=== PATIENT | female | born 1935 | race Caucasian/White ===

== ENCOUNTER 2017-04-08 14:00 | Emergency (ER) | payer MEDICARE, OTHER ==
[2017-04-08 15:49] VITALS: BP 164/84
== END 2017-04-08 15:49 | disposition home or self-care (01) ==
LOC: ED 14:00
DX: S40.012A Contusion of left shoulder, initial encounter (principal); S80.02XA Contusion of left knee, initial encounter; J45.909 Unspecified asthma, uncomplicated; I10 Essential (primary) hypertension; E11.9 Type 2 diabetes mellitus without complications; Z88.0 Allergy status to penicillin; Z88.5 Allergy status to narcotic agent; W19.XXXA Unspecified fall, initial encounter; Y93.89 Activity, other specified; Y99.8 Other external cause status; Y92.89 Other specified places as the place of occurrence of the external cause
CPT/HCPCS: J3010; Q0092; Q0162

== ENCOUNTER 2017-06-29 13:30 | Inpatient (IN) | payer OTHER ==
[~2017-06-29] VITALS: Ht 152.4 cm; Wt 111.2 kg
[2017-06-29 14:29] LABS: BASOPHIL % 0.3 % (0-2); PLATELET COUNT 202 x10^3mcL (130-400)
[2017-06-29 14:34] LABS: RED CELL DISTRIBUTION WIDTH 16.8 % (11.5-14.5)
[2017-06-29 14:43] LABS: CALCIUM 8.7 mg/dL (8.5-10.1); CARBON DIOXIDE 30.9 mmol/L (21-32); CHLORIDE SERUM 104 mmol/L (98-107); GLUCOSE SERUM 86 mg/dL (74-106); POTASSIUM SERUM 4.7 mmol/L (3.5-5.1); SODIUM SERUM 140 mmol/L (136-145)
[2017-06-29 14:47] LABS: ALBUMIN 3.2 g/dL (3.4-5.0); ALKALINE PHOSPHATASE 110 U/L (46-116); ALT/SGPT 23 U/L (14-59); AST/SGOT 22 U/L (15-37); BILIRUBIN TOTAL 0.5 mg/dL (0.20-1.00); TOTAL PROTEIN, SERUM 6.7 g/dL (6.4-8.2)
[2017-06-29] MEDS ORDERED: ASPIR 8181 MG PO (15:51)
[2017-06-29] MEDS ORDERED: CALCIUM (15:51)
[2017-06-29] MEDS ORDERED: PANTOPRAZOLE SO40 M1 PO (15:52)
[2017-06-29] MEDS ORDERED: MONTELUKAST SOD10 M1 PO (15:52)
[2017-06-29] MEDS ORDERED: LOSARTAN POTASS25 M1 PO (15:52)
[2017-06-29] MEDS ORDERED: HUMALOG MIX 75/10 ML (15:53)
[2017-06-29] MEDS ORDERED: SYMBICORT1 AE3 (15:54)
[2017-06-29] MEDS ORDERED: C500500 MG PO (15:54)
[2017-06-29] MEDS ORDERED: ZINC SULFATE220 M2 (15:55)
[2017-06-29] MEDS ORDERED: MULTI-VITAMINS1 TAB PO (15:55)
[2017-06-29] MEDS ORDERED: CYMBALTA60 M1 PO (15:56)
[2017-06-29] MEDS ORDERED: VITAMIN D PO (15:56)
[2017-06-29] MEDS ORDERED: MELOXICAM15 M1 PO (15:57)
[2017-06-29] MEDS ORDERED: ALLOPURINOL100 MG PO (15:57)
[2017-06-29 17:15] VITALS: BP 166/67
[2017-06-29 18:19] LABS: PHOSPHOROUS 3.5 mg/dL (2.5-4.9)
[2017-06-29 18:23] LABS: CHOLESTEROL/HDL RATIO 2.5
[2017-06-29 18:30] LABS: FREE T4 0.9 ng/dL (0.76-1.46); FREE THYROXINE INDEX 2.1 ug/dL (1.4-4.5); T4(THYROXINE) 5.4 ug/dL (4.7-13.3)
[2017-06-29 18:55] LABS: T3 TOTAL 0.79 ng/mL
[2017-06-29 21:29] VITALS: BP 155/56
[2017-06-30 04:53] LABS: microscopic required? YES; urine erythrocyte NEGATIVE (NEGATIVE)
[2017-06-30 05:08] LABS: AMPHETAMINE QUAL UR NONE DETECTED (NEG <=1000)
[2017-06-30 05:49] VITALS: BP 167/76
[2017-06-30 06:15] LABS: BASOPHIL % 0.5 % (0-2); PLATELET COUNT 194 x10^3mcL (130-400)
[2017-06-30 06:21] VITALS: BP 158/60
[2017-06-30 06:27] LABS: CALCIUM 8.4 mg/dL (8.5-10.1); CARBON DIOXIDE 30.7 mmol/L (21-32); CHLORIDE SERUM 108 mmol/L (98-107); CREATININE SERUM 0.9 mg/dL (0.6-1.0); GLUCOSE SERUM 112 mg/dL (74-106); PHOSPHOROUS 3.8 mg/dL (2.5-4.9); POTASSIUM SERUM 4.8 mmol/L (3.5-5.1); SODIUM SERUM 142 mmol/L (136-145)
[2017-06-30 06:30] LABS: RED CELL DISTRIBUTION WIDTH 16.6 % (11.5-14.5)
[2017-06-30 11:10] VITALS: BP 158/65
[2017-06-30 13:15] VITALS: BP 186/69
[2017-06-30] MEDS ORDERED: LASIX40 MG PO ×2 (14:01→14:08)
[2017-06-30 15:44] VITALS: BP 147/67
[2017-06-30] MEDS ORDERED: LAC PO (15:57)
[2017-06-30] MEDS ORDERED: KEFLEX500 M1 PO (15:57)
== END 2017-06-30 16:44 | disposition home health service (06) | DRG 205 ==
LOC: ED 13:30 → DU 15:23
PROVIDERS: ADMIT Family Medicine
DX: M94.0 Chondrocostal junction syndrome [Tietze] (principal); N17.0 Acute kidney failure with tubular necrosis; Z68.42 Body mass index [BMI] 45.0-49.9, adult; N39.0 Urinary tract infection, site not specified; E44.0 Moderate protein-calorie malnutrition; E11.65 Type 2 diabetes mellitus with hyperglycemia; E11.42 Type 2 diabetes mellitus with diabetic polyneuropathy; S30.1XXA Contusion of abdominal wall, initial encounter; I45.10 Unspecified right bundle-branch block; I10 Essential (primary) hypertension; G47.33 Obstructive sleep apnea (adult) (pediatric); M10.9 Gout, unspecified; J44.9 Chronic obstructive pulmonary disease, unspecified; Z79.4 Long term (current) use of insulin; Z99.81 Dependence on supplemental oxygen; Z96.653 Presence of artificial knee joint, bilateral; Z86.73 Personal history of transient ischemic attack (TIA), and cerebral infarction without residual deficits; W18.39XA Other fall on same level, initial encounter; Y92.018 Other place in single-family (private) house as the place of occurrence of the external cause
CPT/HCPCS: 82962; 83880; 84439; J0696; J1815; J1940; J2405; J3490; J7030; J7620; Q0092

== ENCOUNTER 2018-02-28 10:10 | Inpatient (IN) | payer OTHER ==
[~2018-02-28] VITALS: Ht 152.4 cm; Wt 126.1 kg
[~2018-02-28 10:10] MED LIST: ALLOPURINOL100 MG PO; ASPIR 8181 MG PO; C500500 MG PO; CALCIUM; CYMBALTA60 M1 PO; HUMALOG MIX 75/10 ML; KEFLEX500 M1 PO; LAC PO; LASIX40 MG PO; LOSARTAN POTASS25 M1 PO; MELOXICAM15 M1 PO; MONTELUKAST SOD10 M1 PO; MULTI-VITAMINS1 TAB PO; PANTOPRAZOLE SO40 M1 PO; SYMBICORT1 AE3; VITAMIN D PO; ZINC SULFATE220 M2
[2018-02-28 10:13] VITALS: Ht 152.4 cm; Wt 126.1 kg
[2018-02-28 10:47] LABS: BASOPHIL % 0.5 % (0-2); PLATELET COUNT 197 x10^3mcL (130-400)
[2018-02-28 10:48] LABS: RED CELL DISTRIBUTION WIDTH 18.1 % (11.5-14.5)
[2018-02-28 11:06] LABS: CALCIUM 9.4 mg/dL (8.5-10.1); CARBON DIOXIDE 28.6 mmol/L (21-32); CHLORIDE SERUM 106 mmol/L (98-107); CREATININE SERUM 1.1 mg/dL (0.6-1.0); GLUCOSE SERUM 136 mg/dL (74-106); POTASSIUM SERUM 5.5 mmol/L (3.5-5.1); SODIUM SERUM 141 mmol/L (136-145)
[2018-02-28 13:04] VITALS: BP 157/86
[2018-02-28 14:38] VITALS: BP 157/86
[2018-02-28 17:34] VITALS: BP 177/80
[2018-02-28 20:45] VITALS: BP 171/69
[2018-03-01 05:32] VITALS: BP 177/69
[2018-03-01 06:12] LABS: BASOPHIL % 0.7 % (0-2); PLATELET COUNT 178 x10^3mcL (130-400)
[2018-03-01 06:19] LABS: CALCIUM 8.7 mg/dL (8.5-10.1); CARBON DIOXIDE 29.1 mmol/L (21-32); CHLORIDE SERUM 106 mmol/L (98-107); CREATININE SERUM 1.1 mg/dL (0.6-1.0); GLUCOSE SERUM 149 mg/dL (74-106); POTASSIUM SERUM 4.8 mmol/L (3.5-5.1); SODIUM SERUM 141 mmol/L (136-145)
[2018-03-01 07:17] LABS: RED CELL DISTRIBUTION WIDTH 17.6 % (11.5-14.5)
[2018-03-01 09:12] VITALS: BP 141/79
[2018-03-01 12:25] VITALS: BP 158/81
[2018-03-01 16:31] VITALS: BP 165/72
[2018-03-01 18:25] VITALS: BP 156/72
[2018-03-01 21:16] VITALS: BP 160/90
[2018-03-02 05:05] VITALS: BP 115/55
[2018-03-02 05:51] LABS: BASOPHIL % 0.5 % (0-2); PLATELET COUNT 185 x10^3mcL (130-400)
[2018-03-02 05:52] LABS: RED CELL DISTRIBUTION WIDTH 17.8 % (11.5-14.5)
[2018-03-02 06:20] LABS: C REACTIVE PROTEIN 3.1 mg/dL (<=0.9); CALCIUM 8.7 mg/dL (8.5-10.1); CARBON DIOXIDE 31.7 mmol/L (21-32); CHLORIDE SERUM 103 mmol/L (98-107); CREATININE SERUM 1.2 mg/dL (0.6-1.0); GLUCOSE SERUM 157 mg/dL (74-106); MAGNESIUM 1.8 mg/dL (1.8-2.4); PHOSPHOROUS 4.4 mg/dL (2.5-4.9); POTASSIUM SERUM 4.4 mmol/L (3.5-5.1); SODIUM SERUM 141 mmol/L (136-145)
[2018-03-02 07:23] LABS: ERYTHROCYTE SED RATE 23 mm/hr (0-30)
[2018-03-02 08:30] VITALS: BP 175/78
[2018-03-02 13:12] VITALS: BP 165/80
[2018-03-02 17:49] VITALS: BP 151/66
[2018-03-02 21:31] VITALS: BP 144/41
[2018-03-03 05:29] VITALS: BP 147/78
[2018-03-03 05:46] LABS: BASOPHIL % 0.6 % (0-2); PLATELET COUNT 189 x10^3mcL (130-400)
[2018-03-03 06:07] LABS: CALCIUM 8.7 mg/dL (8.5-10.1); CARBON DIOXIDE 32.1 mmol/L (21-32); CHLORIDE SERUM 101 mmol/L (98-107); GLUCOSE SERUM 126 mg/dL (74-106); MAGNESIUM 1.9 mg/dL (1.8-2.4); PHOSPHOROUS 3.9 mg/dL (2.5-4.9); POTASSIUM SERUM 5.1 mmol/L (3.5-5.1); SODIUM SERUM 141 mmol/L (136-145)
[2018-03-03 06:46] LABS: RED CELL DISTRIBUTION WIDTH 18.3 % (11.5-14.5)
[2018-03-03 09:09] VITALS: BP 154/89
[2018-03-03] MEDS ORDERED: ZITHROMAX500 MG PO (12:24)
[2018-03-03] MEDS ORDERED: XARELTO20 M1 PO (12:25)
[2018-03-03] MEDS ORDERED: NOR10 PO (12:26)
[2018-03-03] MEDS ORDERED: HUMULIN R100 U/1 M1 SC (12:26)
[2018-03-03] MEDS ORDERED: LOP50 PO (12:26)
[2018-03-03] MEDS ORDERED: COLCHICINE0.6 M1 PO (12:32)
[2018-03-03 13:15] VITALS: BP 113/46
[2018-03-03 14:16] VITALS: BP 113/46
[2018-03-03 17:02] VITALS: BP 120/52
[2018-03-03 22:25] VITALS: BP 129/61
== END 2018-03-03 23:10 | DRG 553 ==
LOC: ED 10:10 → DU 11:25
PROVIDERS: Emergency Medicine; Internal Medicine
DX: M10.9 Gout, unspecified (principal); N17.0 Acute kidney failure with tubular necrosis; Z68.41 Body mass index [BMI] 40.0-44.9, adult; I50.30 Unspecified diastolic (congestive) heart failure; D68.69 Other thrombophilia; E11.65 Type 2 diabetes mellitus with hyperglycemia; I10 Essential (primary) hypertension; E66.01 Morbid (severe) obesity due to excess calories; M19.90 Unspecified osteoarthritis, unspecified site; I48.91 Unspecified atrial fibrillation; E87.5 Hyperkalemia; I45.81 Long QT syndrome; Z79.4 Long term (current) use of insulin; Z86.73 Personal history of transient ischemic attack (TIA), and cerebral infarction without residual deficits
CPT/HCPCS: C9113; J0456; J1644; J1885; J1940; J3010; J3475; J7030; J7620; J7626; Q0092

== ENCOUNTER 2020-08-25 11:54 | Inpatient (IN) | payer OTHER ==
[~2020-08-25] VITALS: Ht 152.4 cm; Wt 108.0 kg
[~2020-08-25 11:54] MED LIST changes: +COLCHICINE0.6 M1 PO; +HUMULIN R100 U/1 M1 SC; +LOP50 PO; +NOR10 PO; +XARELTO20 M1 PO; +ZITHROMAX500 MG PO
--- NOTE | 2020-08-25 12:18 | NUR ---
85 Y/O FEMALE PMH: DM, HTN, HLD, COPD, "HEART PROBLEMS" COVID 10 DAYS AGO. C/O ABDOMINAL PAIN, SOB, NAUSEA, VOMITING 5-6 DAYS, BIB EMS, 4/10 EPIGASTRIC PAIN, ACHING LIKE, CONSTANT, PROVOKED BY EATING RELIEVED BY VOMITING. +NAUSEA +VOMTINGX2, +ABD PAIN DENIES F/C/JAFFE/DIZZINESS/HEMATURIA/DYSURIA/BLOODY STOOLS/HEMATEMESIS, PT. SPEAKING IN CLEAR FULL SENTENCES, RESPIRATIONS EVEN AND UNALBORED, SKIN WARM AND DRY TO TOUCH, B/L RADIAL/PEDAL PULSES +2, MIDLINE ABDOMINAL SCAR NOTED, PER PT. HERNIA SURGERY, -SWELLING/REDNESS/DRAINAGE TO SCAR NOTED, +GRIMACE WHEN PALPATING RUQ/LUQ/EPIGASTRIC AREA, PT. PLACED ON CONTINUOUS MONITOR, PENDING LABS/EKG/XR/ABG.
[2020-08-25 12:58] LABS: BASOPHIL % 0.2 % (0.2-1.3); PLATELET COUNT 251 x10^3mcL (179-408)
[2020-08-25 13:07] LABS: RED CELL DISTRIBUTION WIDTH 15.7 % (12.3-17.7)
[2020-08-25 13:32] LABS: CALCIUM 8.5 mg/dL (8.5-10.1); CARBON DIOXIDE 28.5 mmol/L (21-32); CHLORIDE SERUM 95 mmol/L (98-107); CREATININE SERUM 1.2 mg/dL (0.6-1.0); GLUCOSE SERUM 271 mg/dL (74-106); POTASSIUM SERUM 4.3 mmol/L (3.5-5.1); SODIUM SERUM 129 mmol/L (136-145)
[2020-08-25 13:37] LABS: ALKALINE PHOSPHATASE 116 U/L (46-116); ALT/SGPT 18 U/L (14-59); AST/SGOT 37 U/L (15-37); BILIRUBIN TOTAL 0.7 mg/dL (0.20-1.00); LACTIC DEHYDROGENASE (LDH) 420 U/L (100-190); TOTAL PROTEIN, SERUM 6.6 g/dL (6.4-8.2)
[2020-08-25 13:38] LABS: ALBUMIN 2.5 g/dL (3.4-5.0)
--- NOTE | 2020-08-25 14:41 | NUR ---
PT IN [place], ON BIPAP, SPEAKING IN CLEAR SENTENCES, RESPIRATIONS EVEN AND UNALBORED, SKIN WARM AND DRY, NO NEW COMPLAINTS, REMAINS ON CONTINUOUS MONITOR, PENDING ADMIT.
[2020-08-25 15:06] LABS: MAGNESIUM 1.8 mg/dL (1.8-2.4); PHOSPHOROUS 3.5 mg/dL (2.5-4.9)
--- NOTE | 2020-08-25 15:12 | NUR ---
KAYLA ([facility]) [phone]
[2020-08-25 16:37] LABS: microscopic required? YES; urine erythrocyte NEGATIVE (NEGATIVE)
[2020-08-25] MEDS ORDERED: SYMBICORT1 AE3 INH (16:54)
[2020-08-25] MEDS ORDERED: VENTOLIN H0.09 MG/A1 INH (16:55)
[2020-08-25] MEDS ORDERED: HUMALOG MIX 75/10 ML (16:57)
[2020-08-25] MEDS ORDERED: LOSARTAN POTASS1 TAB PO (16:57)
[2020-08-25] MEDS ORDERED: NITROGLYCERIN0.4 MG SL (16:59)
[2020-08-25] MEDS ORDERED: DILTIAZEM HCL120 M3 PO (16:59)
[2020-08-25] MEDS ORDERED: FUROSEMIDE20 MG PO (17:00)
[2020-08-25] MEDS ORDERED: GOOD NEIGHBOR P20 M2 PO (17:00)
[2020-08-25] MEDS ORDERED: ZYLOPRIM100 MG PO (17:00)
[2020-08-25] MEDS ORDERED: VITAMIN C500 M6 PO (17:01)
[2020-08-25] MEDS ORDERED: OCUVITE ADULT1 EAC1 PO (17:01)
[2020-08-25] MEDS ORDERED: CLONIDINE HYDR0.1 M1 PO (17:02)
[2020-08-25] MEDS ORDERED: GOOD NEIGHBOR M25 MG PO (17:02)
[2020-08-25] MEDS ORDERED: ULTRAM50 MG PO (17:03)
--- NOTE | 2020-08-25 17:36 | NUR ---
REC'D PT FROM ED VIA [facility] ACCOMPANIED BY RN. PT TRANSFERRED FROM RBATH TO BED WITH 2 PERSON ASSIST. AAOX4, SPEECH CLEAR, FOLLOWS COMMANDS. KINYARWANDA SPEAKING. SUPERVISOR CONCR[employer]E [employer] PHONE UTILIZED BUT PT AND SUPERVISOR [employer]CR[employer]ANT UNABLE TO COMMUNICATE WELL D/T NOISE (OXYGEN AND FILTER IN ROOM). CALLED PT'S DAUGHTER, LUZ [phone], TO GET MORE INFORMATION. PT IS DNR. TRAE HABEMATOLEL WITH HEARING AIDS AT HOME. PT HAS HX OF COPD WITH HOME O2 2.5L BUT HAS BEEN ADVANCING IT TO 3.5-5L AFTER PT HAS BEEN DX WITH COVID. PT DENIES ANY RESP DISTRESS. BREATHING EVEN/UNLABORED ON 15L NONREBREATHER, SPO2 93-94%. ABD SOFT/ROUND/OBESE. C/O MILD EPIGASTRIC PAIN, REQUESTING TYLENOL. VOIDING WITH INCONTINENCE. WEARING DIAPER. NO OPEN WOUNDS OR LESIONS. GEN WEAKNESS. AMB ABOUT 20 FT AT HOME WITH WALKER WITH ASSISTANCE. IV TO RW, SITE WNL. ORIENTED TO DEVICES AND SURROUNDINGS. CALL LIGHT WITHIN REACH, BED AT LOWEST POSITION. REPORT GIVEN TO JUVE RUBIO- WILL GIVE TYLENOL.
[2020-08-25 17:52] VITALS: BP 156/65
--- NOTE | 2020-08-25 18:54 | NUR ---
PT SITTING UP EATING. O2@15L NRB SATS 93-94%. MILD SOB NOTED WITH COUGHHING. TOOK MESDS WELL. LASIX IV GIVEN INSTRUCTED TO CALL FOR ASSISTANCE NEEDED. CALL LIGHT IN REACH. BED IN LOW POSITION. NAD.
[2020-08-25 19:44] VITALS: BP 170/82
--- NOTE | 2020-08-25 20:00 | NUR ---
PATIENT RECEIVED IN BED ALERT AND RESPONSIVE, ON VIA NRB MASK SAT 98%. NO S/SX OF DISTRESS NOTED. ENCOURAGED TO USE CALL CHIU NEEDED. BED ALARM ON, BED IN ITS LOWEST POSITION.
--- NOTE | 2020-08-25 22:15 | NUR ---
PATIENT SIGNED CONSENT FOR PLASMA TRANSFUSION, AWAITING MD TO SIGN CONSENT.
[2020-08-25 23:46] LABS: C REACTIVE PROTEIN 31.2 mg/dL (<=0.9)
[2020-08-26 05:44] VITALS: BP 152/64
[2020-08-26 07:44] LABS: BASOPHIL % 0.1 % (0.2-1.3); PLATELET COUNT 223 x10^3mcL (179-408)
[2020-08-26 08:00] VITALS: BP 150/56
[2020-08-26 08:36] LABS: CALCIUM 8.8 mg/dL (8.5-10.1); CARBON DIOXIDE 29.8 mmol/L (21-32); CHLORIDE SERUM 90 mmol/L (98-107); CREATININE SERUM 1.2 mg/dL (0.6-1.0); GLUCOSE SERUM 321 mg/dL (74-106); MAGNESIUM 1.9 mg/dL (1.8-2.4); PHOSPHOROUS 3.6 mg/dL (2.5-4.9); POTASSIUM SERUM 3.6 mmol/L (3.5-5.1); SODIUM SERUM 126 mmol/L (136-145)
[2020-08-26 08:59] LABS: RED CELL DISTRIBUTION WIDTH 15.8 % (12.3-17.7)
[2020-08-26 10:05] LABS: C REACTIVE PROTEIN 33.9 mg/dL (<=0.9)
--- NOTE | 2020-08-26 10:39 | NUR ---
PT IN BED RESTING AT THIS TIME. WAS MEDICATED FOR EEMESIS OF UNDIGESTED FOOD AFTER EATING BREAKFAST THIS MORNING. O2 ON AT 15L NRB AND SATS OF 93-95%. NOTED OCCASSIONAL DESATS WHERN PT WAS EATIONG. WILL CONTINUE TO MONITOR.
[2020-08-26 13:07] VITALS: BP 158/75
--- NOTE | 2020-08-26 13:21 | NUR ---
CALLED TO RESIDENTS FOR LAB RESULTS REVIEW. LOW SODIUM, HI D-DIMER AND BUN. ALSO REQUESTED FOR PROPHYLACTIC DVT TREATMENT DUE TO IMOBILITY. AWAITING ORDERS.
--- NOTE | 2020-08-26 14:44 | NUR ---
BED BATH GIVEN. PT RELAXING WITH EYES CLOSE AFTER BATH. DENIES ANY PAIN OR DISCOMFORT. NRB O2 @15L. SATS 94-95%. WILL CONTINUE TO MONITOR.
[2020-08-26 16:45] VITALS: BP 187/79
--- NOTE | 2020-08-26 19:45 | NUR ---
RECEIVED REPORT FROM DAY SHIFT RN. PT AA&O X4. ABLE TO FOLLOW COMMANDS AND MAKE NEEDS KNOWN. ON 15 L NONREBREATHER MASK. NO C/O CHEST PAIN/PRESSURE. NO C/O N/V/ABD PAIN AT THIS TIME. IV SALINE LOCKED TO RT WRIST. SAFETY MEASURES IN PLACE. BED IN LOWEST POSITION. INSTRUCTED PT TO USE THE CALL LIGHT FOR ASSISTANCE. CALL LIGHT WITHIN EASY REACH. ON DROPLET PRECAUTIONS.
[2020-08-26 21:23] VITALS: BP 164/78
[2020-08-27 05:47] VITALS: BP 184/86
--- NOTE | 2020-08-27 05:51 | NUR ---
CATAPRES GIVEN FOR BP 184/86, HR 93. NO C/O CHEST PAIN/PRESSURE.
[2020-08-27 06:07] VITALS: BP 178/79
--- NOTE | 2020-08-27 06:29 | NUR ---
PT RESTED IN LONG INTERVALS DURING SHIFT. NO C/O CHEST PAIN. PT REMAINS ON 15L NONREBREATHER MASK. O2 SAT 91-92% SOB ON EXERTION. SAFETY MEASURES MAINTAINED. ALL NEEDS ATTENDED TO. CALL LIGHT WITHIN REACH. DROPLET PRECAUTIONS MAINTAINED. WILL ENDORSE CONTINUITY OF CARE TO DAY SHIFT RN.
[2020-08-27 07:16] LABS: BASOPHIL % 0.1 % (0.2-1.3); PLATELET COUNT 254 x10^3mcL (179-408)
[2020-08-27 07:34] LABS: RED CELL DISTRIBUTION WIDTH 15.6 % (12.3-17.7)
--- NOTE | 2020-08-27 08:00 | NUR ---
PT AWAKE, APPEARS COMFORTABLE. ALERT AND ORIENTED X 4 DENIES ANY CHEST PAIN DENIES ANY N/V OR EPIGASTRIC PAIN. LUNGS DIMINISHED. O2 ON AT 15L NRB WITH SATS OF 90-91% REPOSITIONED ON RIGHT SIDE, BED IN LOWEST POSITION. CALL LIGHT IN REACH. INSTRUCTED ON FALL AND SAFETY PRECAUTION AND TO CALL FOR ANY NEEDS. PT VERBALIZED UNDERSTANDING. PT IS KOSOVAN SPEAKING BUT ABLE TO MAKE NEEDS KNOWN.
[2020-08-27 08:08] LABS: ALKALINE PHOSPHATASE 159 U/L (46-116); ALT/SGPT 20 U/L (14-59); AST/SGOT 55 U/L (15-37); BILIRUBIN DIRECT 0.21 mg/dL (0.0-0.2); BILIRUBIN TOTAL 0.8 mg/dL (0.20-1.00); CALCIUM 9.2 mg/dL (8.5-10.1); CARBON DIOXIDE 29.9 mmol/L (21-32); CHLORIDE SERUM 96 mmol/L (98-107); CREATININE SERUM 1.3 mg/dL (0.6-1.0); GLUCOSE SERUM 209 mg/dL (74-106); MAGNESIUM 1.9 mg/dL (1.8-2.4); PHOSPHOROUS 3.4 mg/dL (2.5-4.9); POTASSIUM SERUM 4.3 mmol/L (3.5-5.1); SODIUM SERUM 136 mmol/L (136-145); TOTAL PROTEIN, SERUM 7.4 g/dL (6.4-8.2)
[2020-08-27 08:27] LABS: ALBUMIN 2.6 g/dL (3.4-5.0)
[2020-08-27 08:47] LABS: C REACTIVE PROTEIN 18.9 mg/dL (<=0.9)
[2020-08-27 09:30] VITALS: BP 147/85
[2020-08-27 13:32] VITALS: BP 119/70
--- NOTE | 2020-08-27 14:42 | NUR ---
CALLED TO PT'S ROOM FOR DESATS DOWN TO THE 60s. NRB MASK PARTIALLY ON. REPOSITIONED AND ADJUSTED MASK, SATS UP TO 70s. RT IN ANS STARTED BYPAP ON PT. SATS NOW HI HI 80S TO 90. WILL CONTINUE TO MONITOR.
--- NOTE | 2020-08-27 14:46 | NUR ---
CALL PLACED TO METALLURGICAL SPECIALIST FOR AN UPDATE AND ORDER FOR RECEIVED FOR ABG AND TO CONTACT EVAPORATOR SUPERVISOR WITH THE RESULT.
[2020-08-27 16:30] VITALS: BP 138/78
--- NOTE | 2020-08-27 16:42 | NUR ---
CALLED DR DENNEY'S OFFICE AND LEFT A MESSAGE IN HIS ASSISTANTS ANSWERING SERVICE WITH A CALL BACK NUMBER. CHARGE NURSE AWARE OF PT'S CHANGE IN CONDITION. PT IS CURRENTLY ON BIPAP WITH 100% SATS 97%. WILL CONTINUE TO MONITOR.
--- NOTE | 2020-08-27 16:50 | NUR ---
PT'S RESP IS LABORED. RESPOSITIONED FOR COMFORT. AWAITING CALL FROM PULMONALOGIST OFFICE.
[2020-08-27 19:33] VITALS: BP 93/69
--- NOTE | 2020-08-27 19:47 | NUR ---
PATIENT IN BED ON BIPAP MACHINE IPAP 12 EPAP 8 RATE 16 FIO2 100%, ACCESSORY MUSCLE USE, NO SIGNS OF PAIN AT THIS TIME, BED IN LOWEST POSITION, CALL LIGHT WITHIN REACH, WILL CONTINUE TO MONITOR.
--- NOTE | 2020-08-27 22:30 | NUR ---
PATIENT'S HEART RATE TRENDING DOWN, RESPIRATIONS NOW SHALLOW AND BRADYPNEA, RT NOTIFIED, WILL CONTINUE TO MONITOR.
--- NOTE | 2020-08-27 23:18 | NUR ---
PATIENT ASYSTOLE, NO PULSE PRESENT, NO RESPIRATIONS OBSERVED, DR. FIGUEROA AT BEDSIDE, PRONOUNCED TIME OF AT 2248.
== END 2020-08-27 22:49 | DRG 871 ==
LOC: ED 11:54 → DU 14:13
PROVIDERS: Internal Medicine; Specialist; ADMIT Family Medicine; ATTEND Family Medicine
PROC: XW13325 Transfusion of Convalescent Plasma (Nonautologous) into Peripheral Vein, Percutaneous Approach, New Technology Group 5 (ICD-10-PCS; principal; 2020-08-26)
PROC: XW033E5 Introduction of Remdesivir Anti-infective into Peripheral Vein, Percutaneous Approach, New Technology Group 5 (ICD-10-PCS; 2020-08-27)
PROC: 5A09357 Assistance with Respiratory Ventilation, Less than 24 Consecutive Hours, Continuous Positive Airway Pressure (ICD-10-PCS; 2020-08-27)
DX: A41.89 Other specified sepsis (principal); U07.1 COVID-19; N17.0 Acute kidney failure with tubular necrosis; J12.82 Pneumonia due to coronavirus disease 2019; J96.00 Acute respiratory failure, unspecified whether with hypoxia or hypercapnia; N39.0 Urinary tract infection, site not specified; I13.0 Hypertensive heart and chronic kidney disease with heart failure and stage 1 through stage 4 chronic kidney disease, or unspecified chronic kidney disease; E87.1 Hypo-osmolality and hyponatremia; J44.0 Chronic obstructive pulmonary disease with (acute) lower respiratory infection; M10.9 Gout, unspecified; Z96.653 Presence of artificial knee joint, bilateral; Z66 Do not resuscitate; E11.22 Type 2 diabetes mellitus with diabetic chronic kidney disease; E11.65 Type 2 diabetes mellitus with hyperglycemia; N18.2 Chronic kidney disease, stage 2 (mild); R65.20 Severe sepsis without septic shock; I50.9 Heart failure, unspecified; I48.91 Unspecified atrial fibrillation; Z88.0 Allergy status to penicillin; Z88.5 Allergy status to narcotic agent; Z87.891 Personal history of nicotine dependence; Z79.01 Long term (current) use of anticoagulants
CPT/HCPCS: 36600; 82962; 83880; 85378; 87804; G0378; J0456; J1100; J1815; J1940; J1956; J2405; J3490; J3535; J7030; J7050; Q0163; U0003